=== PATIENT | female | born 1985 | race African-American/Black ===

== ENCOUNTER 2016-08-02 16:37 | Inpatient (IN) | payer OTHER ==
[~2016-08-02] VITALS: Ht 165.1 cm; Wt 89.4 kg
[~2016-08-02 16:37] MED LIST: PREDNISONE 20MG20 MG PO; VISTARIL25 MG PO
[2016-08-02 18:20] LABS: ABSOLUTE BASOPHIL COUNT 0.1 /CUMM (0.0-0.2); ABSOLUTE EOSINOPHIL COUNT 0.2 /CUMM (0.0-0.7); ABSOLUTE GRANULOCYTE CT 6.8 /CUMM (1.4-6.5); ABSOLUTE LYMPH COUNT 1.3 /CUMM (1.2-3.4); ABSOLUTE MONOCYTE COUNT 0.5 /CUMM (0.10-0.60); BASOPHIL % 0.6 % (0.0-2.0); EOSINOPHIL % 1.8 % (0-5); GRANULOCYTE % 77.3 % (42.2-75.2); HEMATOCRIT 38.8 % (37-47); MEAN CORPUSCULAR HGB 27.9 PG (27.0-31.0); MEAN CORPUSCULAR VOLUME 84.5 FL (81.0-99.0); MEAN PLATELET VOLUME 9.3 FL (7.4-10.4); PLATELET COUNT 248 /CUMM (130-400); RBC DISTRIBUTION WIDTH 13.9 % (11.5-14.5); RED BLOOD CELL CT 4.59 /CUMM (4.20-5.40); WHITE BLOOD CELL COUNT 8.8 /CUMM (4.8-10.8)
--- NOTE | 2016-08-02 20:34 | History & Physical ---
General Information and HPI MD Statement: I have seen and personally examined MARCELL LAZCANO and documented this H&P. The patient is a 31 year old female at [38] weeks and [3] days gestation who presented with a chief complaint of [LOF]. Source of Information: patient Exam Limitations: no limitations History of Present Illness: 31yo, 38 3/7wks, c/o LOF since 4:30PM today. denies any ctxs, no vaginal bleeding, reports GFM.Amnisure positive. care started at 8 wks 2 days, 22 wks anatomy scan seen echogenic cardiac focus , MaterniT 21 normal, pt declined amniocentesis. GBS positive. 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 Past Pregnancies Past Pregnancies: Date of Delivery: 08/16/2009 Gestational Age: 38wks Length of Labor: 12hours Weight: 6lb1oz Type of Delivery: vaginal Anesthesia: epidural Medical History Blood Transfusion Hx: No Neurological: NONE EENT: NONE Cardiovascular: NONE Respiratory: NONE Gastrointestinal: NONE Hepatic: NONE Renal: NONE Musculoskeletal: NONE Psychiatric: NONE Endocrine: NONE Blood Disorders: NONE Cancer(s): NONE 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 Home Who Do You Live With? spouse, child Primary Language: Zambian Smoking Status: Never Smoked ETOH Use: denies use Illicit Drug Use: denies illicit drug use Review of Systems Review of Systems Constitutional: Reports: no symptoms. EENTM: Reports: no symptoms. Cardiovascular: Reports: no symptoms. Respiratory: Reports: no symptoms. GI: Reports: no symptoms. Genitourinary: Reports: see HPI. Musculoskeletal: Reports: no symptoms. Skin: Reports: no symptoms. Neurological/Psychological: Reports: no symptoms. Hematologic/Endocrine: Reports: no symptoms. Immunologic/Allergic: Reports: no symptoms. All Other Systems: Reviewed and Negative Date of LMP: 11/07/15 Post Menopausal: No Exam & Diagnostic Data Obstetric Exam Wgt Gained During : 26lbs Pelvimetry: adequate Dilation (cm): 2 Effacement (%): 50 Station: -3 Membranes: SROM Fluid: clear Fundal Height (cm): 38 Multiple Gestation? No Contractions: irregular #1 - FHR Baseline: 130 Category: 1 Estimated Weight: 3000g Presentation: vertex Patient for Induction? No Physical Exam: VSS general: NAD Abdomen: gravid, soft, nontender Ext: DCT (-) Labs Blood Type & Rh: O positive Antibody Screen: negative Hct/Hgb & Platelets #1: 12.3/39.5%, [id number] Hct/Hgb & Platelets #2: 11.7/36.5%,PLT [id number] Rubella: immune VDRL #1: negative VDRL #2: negative HbsAg: negative HIV #1: negative HIV #2 negative 1 Hr P Group B Strep: positive Initial Ultrasound: IUP at 8wks 2 days Anatomy Ultrasound: normal, echogenic cardiac focus seen Genetic Testing: normal Last 24 Hrs of Labs/Andi: Laboratory Tests 08/02/16 1810: Urine Color YEL, Urine Clarity CLEAR, Urine pH 7.0, Ur Specific [place] 1.010, Urine Protein NEG, Urine Ketones NEG, Urine Nitrite NEG, Urine Bilirubin NEG, Urine Urobilinogen 0.2, Ur Leukocyte Esterase SMALL H, Ur Microscopic SEDIMENT EXAMINED, Urine RBC RARE, Urine WBC 1-3 H, Ur Epithelial Cells FEW, Urine Mucus RARE, Urine Hemoglobin TRACE-INTACT, Urine Glucose NEG 08/02/16 1705: CBC w Diff NO MAN DIFF REQ, RBC 4.59, MCV 84.5, MCH 27.9, RDW 13.9, MPV 9.3, Gran % 77.3 H, Lymphocytes % 15.0 L, Monocytes % 5.3, Eosinophils % 1.8, Basophils % 0.6, Absolute Granulocytes 6.8 H, Absolute Lymphocytes 1.3, Absolute Monocytes 0.5, Absolute Eosinophils 0.2, Absolute Basophils 0.1, PUBS MCHC 33.0 Assessment/Plan Assessment/Plan: 31yo, 38 3/7wks, SROM 1. admit pt, admission labs 2. antibiotics for GBS prophylaxis 3. pain management as needed 4. monitor closely As Ranked By This Provider Problem List: 1. Core Measures/Miscellaneous Venous Thromboembolism VTE Risk Factors: / VTE Contraindications: No Contraindications VTE Prophylaxis Ordered Inpt: Early Ambulation VTE Diagnosis: No Beta Oanh Is Beta Oanh a Home Med? No Antibiotics Is Patient on Antibiotics? No Attending MD Review Statement Attending Statement Attending MD Statement: examined this patient, discussed with family, discussed w/nursing
[2016-08-02] MEDS ORDERED: PRENATABS RX T1 EACH PO (21:41)
[2016-08-03 00:26] VITALS: BP 113/58
--- NOTE | 2016-08-03 10:04 | PN- OBGYN ---
Surgical Brief Attending Note Brief Attending Note: pt had satdolo last night for ctxs pain, and rested overnight, this morning, she had irregular ctxs, FHT baseline 120s, moderate variability, + acels, occasional variable decles, cervix 2cm/50%/-3, will start pitocin augmentation. will monitor closely
--- NOTE | 2016-08-03 11:10 | PN- OBGYN ---
Surgical Brief Attending Note Brief Attending Note: pt has no complaints. pitocin started at 2 mU/min on TOCO: ctxs q5-6 min, FHR baseline 120s, variable decels to 80s with each ctxs , with 1 late decels, cervix 2 cm/50%/-3. d/w pt about intolerance of labor, AGENT SPA DESK positive, d/w pt, she understand and agreed. R/B of d/w pt, including but not limit to infection, bleeding, damage to other organs, wound infection , secondary healing of wound, she understand and agreed to proceed .
--- NOTE | 2016-08-03 12:58 | Operative Report ---
Operative/Inv Procedure Report Surgery Date: 08/03/16 Name of Procedure: Primary low transverse section via Pfannenstiel Pre-Operative Diagnosis: 38 4/7wks, spontaneous rupture of membrane, intolerance of labor Post-Operative Diagnosis: Same Estimated Blood Loss: 600 mL Surgeon/Harness Tier: MATTEO HARMAN,PEDRO Fletcher MD Anesthesia: spinal IV Fluids: 1800 mL lactated Ringer's Urine Output: 500 mL clear urine at the end of procedure Specimens: Placenta Complications: None Condition: Stable Operative Indication: 31-year-old G2 para 1001 at 38 weeks 4 days intrauterine , spontaneous rupture of membrane around 5:30 PM 08/02/2016, she received antibiotics for GBS positive prophylaxis, she was started Pitocin for augmentation of labor 2016, contraction stress test positive, intolerance of labor, cervix was 2 cm dilated , remote from delivery. Operative/Procedure Note Note: The patient was taken to the operating room where spinal anesthesia was found to be adequate. She was then prepared and draped in the normal sterile fashion in the dorsosupine position with a leftward tilt. A Pfannenstiel skin incision was then made with the scalpel and carried through to the underlying layer of the fascia . The fascia was incised in the midline and the incision extended laterally. The rectus muscle was in the midline, and the peritoneum identified and entered bluntly. The peritoneal incision was then extended superiorly and inferiorly with good visualization of the bladder. The bladder blade was then inserted and the vesicouterine peritoneum identified, grasp with pickups and entered sharply with the Metzenbaum scissors. The incision was then extended laterally and bladder flap created digitally. The bladder blade was then reinserted and the lower uterine segment incised in a transverse fashion with the scalpel. The uterine incision was then extended laterally and the bladder blade was removed and infant head delivered atraumatically. The nose and mouth was suctioned with the suction bulb, and the cord clamped and cut. The was handed off to the waiting pediatricians. Cord blood was sent. The placenta was then removed manually. The uterus exteriorized, and cleared with all clots of debris. The uterine incision was then repaired with 0 Vicryl in a running locked fashion. A second layer of the same suture was used to obtain hemostasis. On the right corner of the uterine incision there is a small amount bleeding observed, 0 Vicryl suture was used to suture ligate the bleeding excellent hemostasis assured. The uterus returned to the abdomen, the gutters were cleared of all clots, and the peritoneum closed with 2-0 Vicryl. The fascia was reapproximated with 0 Vicryl in a running fashion. The subcutaneous adipose tissue was reapproximated with 3O plain suture. The skin was closed with 4-0 Vicryl subcuticularly. The patient tolerated the procedure well, sponge, lap and needle counts were correct 2. Patient was transferred to the recovery room in stable condition. Findings: Female as cephalic presentation, LOT position, 8/9. 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
[2016-08-04 08:46] LABS: ABSOLUTE EOSINOPHIL COUNT 0.1 /CUMM (0.0-0.7); ABSOLUTE MONOCYTE COUNT 0.6 /CUMM (0.10-0.60); RBC DISTRIBUTION WIDTH 13.8 % (11.5-14.5)
[2016-08-04 08:57] LABS: ABSOLUTE BASOPHIL COUNT 0.3 /CUMM (0.0-0.2); ABSOLUTE LYMPH COUNT 1.4 /CUMM (1.2-3.4); BASOPHIL % 3.3 % (0.0-2.0); EOSINOPHIL % 1.2 % (0-5); MEAN CORPUSCULAR HGB 28.2 PG (27.0-31.0); MEAN CORPUSCULAR HGB CONC 33.1 G/DL (33.0-37.0); MEAN CORPUSCULAR VOLUME 85.1 FL (81.0-99.0); MEAN PLATELET VOLUME 9.1 FL (7.4-10.4); PLATELET COUNT 218 /CUMM (130-400); RED BLOOD CELL CT 3.94 /CUMM (4.20-5.40); WHITE BLOOD CELL COUNT 9.4 /CUMM (4.8-10.8)
[2016-08-04 09:08] LABS: HEMATOCRIT 33.5 % (37-47)
[2016-08-04 09:27] LABS: GRANULOCYTE % 74.6 % (42.2-75.2)
--- NOTE | 2016-08-04 09:41 | PN- Post Delivery/GYN ---
Subjective Subjective: feeling well Review of Systems Constitutional: Reports: no symptoms. Denies: chills, fever. EENTM: Denies: blurred vision, double vision, visual changes. Cardiovascular: Denies: chest pain. Respiratory: Denies: cough, short of breath. Gastrointestinal: Denies: nausea, vomiting. Neurological/Psychological: Denies: anxiety, depressed. Objective Last 24 Hrs of Vital Signs/I&O vss Physical Exam General Appearance Alert, Oriented X3, Cooperative, No Acute Distress Cardiovascular Regular Rate Lungs Clear to Auscultation Abdomen Soft, incision clean and dry Current Medications: Current Medications Sig/Venancio Start time Last Medication Dose Route Stop Time Status Admin Acetaminophen 1,000 MG Q6P PRN 08/03 1600 AC 08/03 N/A 1 UNIT IV 2145 Acetaminophen 650 MG Q4P PRN 08/03 1245 AC PO Bisacodyl 10 MG DAILY NEEDED PRN 08/03 1245 AC MO Butorphanol Tartrate 1 MG Q4P PRN 08/03 0130 DC 08/03 IV 0133 Butorphanol Tartrate 1 MG Q4P PRN 08/03 0130 DC 08/03 IM 0134 Citric Acid/Sodium 30 ML ONCE ONE 08/03 1300 DC 08/03 Citrate PO 08/03 1301 1247 Clindamycin 900 MG ONCE ONE 08/03 1115 DC 08/03 IV 08/03 1116 1245 Diphenhydramine HCl 25 MG Q6P PRN 08/03 1415 AC IV Docusate Sodium 100 MG AT BEDTIME PRN 08/03 1245 AC PO Fentanyl Citrate 100 MCG .STK-MED ONE 08/03 1101 DC IM 08/03 1102 Gentamicin Sulfate 80 MG ONE ONE 08/03 1115 DC 08/03 Dextrose/Water 100 ML IV 08/03 1144 1116 Hydroxyzine HCl 100 MG ONCE PRN 08/02 2345 DC 08/02 PO 2354 Ibuprofen 800 MG Q6P PRN 08/03 1245 AC 08/04 PO 0548 Ketorolac 30 MG Q6H PRN 08/03 2014 DC Tromethamine IV 08/04 2014 Ketorolac 30 MG Q6 08/03 1800 CAN Tromethamine IV 08/04 1759 Ketorolac 30 MG Q6P PRN 08/03 1800 AC 08/04 Tromethamine IV 08/04 1759 0009 Ketorolac 30 MG ONE ONE 08/03 1415 CAN Tromethamine IV 08/03 1900 Ketorolac 30 MG ONE ONE 08/03 1200 DC Tromethamine IV 08/03 1201 Lactated Ringer's 1,000 ML Q8H 08/03 1245 AC IV Lactated Ringer's 1,000 ML Q8H 08/02 1745 DC 08/03 IV 0943 Metoclopramide HCl 10 MG Q6P PRN 08/03 1415 AC IV Midazolam HCl 5 MG .STK-MED ONE 08/03 1101 DC IM 08/03 1102 Morphine Sulfate 10 MG .STK-MED ONE 08/03 1101 DC IV 08/03 1102 Naloxone HCl 0.2 MG .Q5MIN PRN 08/03 1415 AC IV Oxycodone/ 1 TAB Q4P PRN 08/03 1245 AC Acetaminophen PO Oxycodone/ 2 TAB Q4P PRN 08/03 1245 AC Acetaminophen PO Oxytocin 20 UNITS ONCE ONE 08/03 1345 DC 08/03 Lactated Ringer's 1,000 ML IV 08/03 2144 1550 Oxytocin 20 UNITS Q8H 08/03 1245 DC 08/03 Lactated Ringer's 1,000 ML IV 08/03 2044 1246 Oxytocin 10 UNITS ONCE ONE 08/03 1245 DC 08/03 IM 08/03 1246 1245 Oxytocin 30 UNITS PER PROTOCL 08/03 1015 DC Lactated Ringer's 500 ML IV Vancomycin HCl 1,000 MG Q12H 08/02 1815 DC 08/03 Dextrose/Water 250 ML IV 0630 Last 24 Hrs of Labs/Andi: Laboratory Tests 08/04/16 0645: CBC w Diff NO MAN DIFF REQ, RBC 3.94 L, MCV 85.1, MCH 28.2, RDW 13.8, MPV 9.1, Gran % 74.6, Lymphocytes % 14.6 L, Monocytes % 6.3, Eosinophils % 1.2, Basophils % 3.3 H, Absolute Granulocytes 7.0 H, Absolute Lymphocytes 1.4, Absolute Monocytes 0.6, Absolute Eosinophils 0.1, Absolute Basophils 0.3, PUBS MCHC 33.1 Microbiology 08/03 1135 URINE ROUT: Urine Culture - RES Assessment/Plan Assessment/Plan pod #1 vss afebrile Problem List: 1. 2. SROM (spontaneous rupture of membranes) Attending MD Review Statement Attending Statement Attending MD Statement: examined this patient, discussed with family, discussed with nursing
--- NOTE | 2016-08-05 11:01 | PN- OBGYN ---
Surgical Brief Attending Note Brief Attending Note: POD#2 pt is resting in bed, feeling well, no complaints,tolerate diet, void without difficulties, flatus (+). PE: VSS CV RRR lungs CTA B/L Abdomen: soft, nontender, uetrus firm, fundus below umbilicus,incision D/C/I, lochia mild Ext: DCT (-) A/P: 31 yo, s/p PLTCS, PPD #2 1. encourage ambulation, encourage 2.RT PP care 3. pain management as needed
[2016-08-06] MEDS ORDERED: PERCOCET 5-3251 EACH PO (09:47)
[2016-08-06] MEDS ORDERED: IBUPROFEN800 M1 PO (09:47)
--- NOTE | 2016-08-06 11:21 | PN- OBGYN ---
Surgical Brief Attending Note Brief Attending Note: The patient is doing well and is without complaints. She is an bleeding, voiding, tolerating pain and by mouth, bottle feeding, small to moderate lochia. Vital Signs are stable Abdomen is soft, appropriate tender, incision is clean dry and intact. Steri- Strip's are in place. Extremities are without calf tenderness and our trace pedal edema bilaterally Laboratory Tests 08/04/16 0645: CBC w Diff NO MAN DIFF REQ, RBC 3.94 L, MCV 85.1, MCH 28.2, RDW 13.8, MPV 9.1, Gran % 74.6, Lymphocytes % 14.6 L, Monocytes % 6.3, Eosinophils % 1.2, Basophils % 3.3 H, Absolute Granulocytes 7.0 H, Absolute Lymphocytes 1.4, Absolute Monocytes 0.6, Absolute Eosinophils 0.1, Absolute Basophils 0.3, PUBS MCHC 33.1 Microbiology 08/03 1135 URINE ROUT: Urine Culture - COMP Impression and plan: Postop day 3. Status post primary low transverse section for nonreassuring heart tones. Plan discharge to home today. Discharge precautions advised. Return to office in 2 and 6 weeks .
--- NOTE | 2016-08-08 12:42 | Discharge Summary ---
Visit Information Visit Dates Admission Date: 08/02/16 Discharge Date: 08/06/16 Hospital Course Course Attending Physician: PEDRO FELIPE MD Primary Care Physician: ANGELICA LYNCH MD Hospital Course: 31 yo, she was admitted for SROMon 08/02/2016. she received antibiotics for GBS prophylaxis.Pitocin was used for IOL, intolerance roderick was encountered, pt underwent PLTCS on 08/03/2016. pt tolerate procedure well, she delivered a live female without complications. During the hospital stay, she remained in stable condition, afebrile, VSS, uterus firm, fundus below umbilicus, incision D/C/I, lochia mild. she was discharged on postoperative day 3. Complications: none Allergies: Coded Allergies: Penicillins (Mild, RASH 08/03/16) Significant Procedures: PLTCS Disposition Summary Disposition Principal Diagnosis: term , SROM, intolerance of labor Additional Diagnosis: NONE Discharge Disposition: home or self care Discharge Instructions General Discharge Information Code Status: Full Code Patient's Diet: regular Patient's Activity: as tolerated Follow-Up Instructions/Appts: 2wks and 6 wks in office Medications at Discharge Discharge Medications: Continue taking these medications: Vit #76/Iron,Carb/FA (Prenatabs Rx Tablet) 29 MG IRON-1 MG TABLET 1 Tablet ORAL DAILY Start taking the following new medications: Ibuprofen (Ibuprofen) 800 MG TABLET 800 Milligram ORAL EVERY SIX HOURS NEEDED as needed for UTERINE CRAMPING Qty = 30 No Refills Comments: Last Taken:08/06/16 Time:09 Oxycodone HCl/Acetaminophen (Percocet 5-325 MG Tablet) 5 MG-325 MG TABLET 1 Tablet ORAL EVERY 4 HOURS NEEDED as needed for PAIN SCALE 4-6 (MODERATE ) Qty = 30 No Refills Comments: Last Taken:08/06/16 Time:0930 Copies To: PEDRO FELIPE MD, MD Review Statement Documenting Attending: PEDRO FELIPE MD
== END 2016-08-06 11:50 | DRG 540 ==
LOC: CBCO 16:37 → GNO 17:11
PROVIDERS: ADMIT Obstetrics & Gynecology
PROC: 10D00Z1 Extraction of Products of Conception, Low, Open Approach (ICD-10-PCS; principal; 2016-08-02)
DX: O76 Abnormality in fetal heart rate and rhythm complicating labor and delivery (principal); Z3A.38 38 weeks gestation of pregnancy; Z37.0 Single live birth; O99.824 Streptococcus B carrier state complicating childbirth
CPT/HCPCS: GNOP; GNOS; 81001; 84112; 87086; 88307; J0131; J0595; J1580; J1885; J2765; J3370; J7060; J7120

== ENCOUNTER 2016-11-13 17:10 | Emergency (ER) | payer OTHER ==
[~2016-11-13 17:10] MED LIST changes: +IBUPROFEN800 M1 PO; +PERCOCET 5-3251 EACH PO; +PRENATABS RX T1 EACH PO
--- NOTE | 2016-11-13 17:53 | ED GENERAL ADULT ---
History of Present Illness General Chief Complaint: General Adult Stated Complaint: PT IS HAVING A PROBLEM WITH HER BLOOD PRESSURE Source: patient Exam Limitations: no limitations Vital Signs & Intake/Output Vital Signs & Intake/Output Vital Signs Date Time Temp Pulse Resp B/P B/P Pulse O2 O2 Flow FiO2 Mean Ox Delivery Rate 11/13 1832 132/88 11/13 1811 98.5 69 20 144/100 11/13 1752 Room Air 11/13 1743 144/100 11/13 1728 98.5 69 20 149/104 97 Allergies Coded Allergies: Penicillins (Mild, RASH 08/03/16) Reconcile Medications Amlodipine (Norvasc) 2.5 MG TABLET 1 TAB PO DAILY htn Etonogestrel (Nexplanon) 68 MG IMPLANT CONTROL (Reported) Sulfamethoxazole/Trimethoprim (Bactrim Ds Tablet) 800 MG-160 MG TABLET 1 TAB PO BID uti Triage Note: PER PT BP FLUCUATES NEVER FORMALLY DX WITH HTN BUT THIS AM HAD A BCUKNER TOOK BP AND IT WAS HIGH, CURRENTLY CONT WITH BUCKNER BP 149/104 IMPLANTED BCP. Triage Nurses Notes Reviewed? yes Onset: Abrupt Duration: hour(s):, constant, continues in ED Timing: recent history Injury Environment: home Severity: moderate, severe No Modifying Factors: none : No Patient currently breastfeeds: No HPI: 31-year-old female comes into the emergency room for further evaluation of her blood pressure being high. Patient reports she's been told she has had hypertension in the past. He has not been treated with any medication. She reports that she was feeling lightheaded with a headache earlier today and thought this was an indication her blood pressure was high so she took it at home and it was high. She denies any chest pain or shortness of breath. Denies any vomiting. Currently taking no medications for blood pressure. Denies any other past medical history or any other associated symptoms. Past History Travel History Traveled to [place] past 21 day No Medical History Any Pertinent Medical History? 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 No Review of Systems Review of Systems Constitutional: Reports: no symptoms. EENTM: Reports: no symptoms. Respiratory: Reports: no symptoms. Cardiovascular: Reports: no symptoms. GI: Reports: no symptoms. Genitourinary: Reports: no symptoms. Musculoskeletal: Reports: no symptoms. Skin: Reports: no symptoms. Neurological/Psychological: Reports: no symptoms. Hematologic/Endocrine: Reports: no symptoms. Immunologic/Allergic: Reports: no symptoms. All Other Systems: Reviewed and Negative Physical Exam Physical Exam General Appearance: well developed/nourished, alert, awake Head: atraumatic, normal appearance Eyes: Bilateral: normal appearance, PERRL, EOMI. Ears, Nose, Throat: normal pharynx, normal ENT inspection, hearing grossly normal Neck: normal inspection, full range of motion Respiratory: normal breath sounds, no respiratory distress Cardiovascular: regular rate/rhythm Back: normal inspection Extremities: normal inspection, no edema Neurologic/Psych: awake, alert, oriented x 3, normal gait, normal mood/affect Skin: intact, normal color Core Measures ACS in differential dx? No CVA/TIA Diagnosis: No Severe Sepsis Present: No Septic Shock Present: No Progress Differential Diagnoses I considered the following diagnoses in my evaluation of the patient: Hypertensive urgency, essential hypertension, CVA, end organ damage, proteinuria , Plan of Care: Orders Procedure Date/time Status Add-on Test (ER Only) 11/13 1842 Active CULTURE,URINE 11/13 1753 Active URINE 11/13 1746 Complete URINALYSIS 11/13 1746 Complete TROPONIN LEVEL 11/13 1746 Complete COMPREHENSIVE METABOLIC PANEL 11/13 1746 Complete CBC WITHOUT DIFFERENTIAL 11/13 1746 Complete EKG 11/13 1746 Active Laboratory Tests 11/13/16 175: Urinalysis LIGHT H, Urine Color YEL, Urine Clarity CLEAR, Urine pH 7.5, Ur Specific [place] 1.020, Urine Protein NEG, Urine Ketones NEG, Urine Nitrite NEG, Urine Bilirubin NEG, Urine Urobilinogen 2.0 H, Ur Leukocyte Esterase MOD H, Ur Microscopic SEDIMENT EXAMINED, Urine RBC RARE, Urine WBC 10-15 H, Ur Epithelial Cells FEW, Urine Bacteria MOD H, Urine Mucus MOD H, Urine Hemoglobin NEG, Urine Glucose NEG, Urine Test NEGATIVE 11/13/161748: Anion Gap 11, Estimated GFR > 60, BUN/Creatinine Ratio 11.3, Glucose 86, Calcium 9.2, Total Bilirubin 0.3, AST 17, ALT 28, Alkaline Phosphatase 70, Troponin I < 0.01, Total Protein 6.7, Albumin 3.8, Globulin 2.9, Albumin/Globulin Ratio 1.3, CBC w Diff NO MAN DIFF REQ, RBC 4.69, MCV 79.4 L, MCH 25.3 L, RDW 14.8 H, MPV 8.1, Gran % 58.8, Lymphocytes % 30.3, Monocytes % 6.8, Eosinophils % 3.3, Basophils % 0.8, Absolute Granulocytes 4.1, Absolute Lymphocytes 2.1, Absolute Monocytes 0.5, Absolute Eosinophils 0.2, Absolute Basophils 0.1, PUBS MCHC 31.8 L Microbiology 11/13 1754 URINE ROUT: Urine Culture - RECD Initial ED EKG: normal intervals, normal p-waves, normal QRS complex, normal sinus rhythm, rate (76), nonspecific ST T wave chg Departure Departure Disposition: HOME OR SELF CARE Condition: Stable Clinical Impression Primary Impression: Hypertension Referrals: ANGELICA LYNCH MD (PCP/Family) Additional Instructions: Take amlodipine as prescribed. If urine culture comes back positive filled prescription for oral antibiotic. Call the ER if he has not heard any results within 3 days. Number is [phone]. Follow-up with your primary care doctor. Please go over all results of today's visit with your primary care doctor. Contact your primary care doctor to let them know you were here in the emergency room. There may be nonspecific findings which may not be related to your visit today here in the emergency room but may require further evaluation and chronic monitoring by your primary care doctor. If you had a laceration today the chance of foreign body always remains. You should follow-up with your primary care doctor for recheck in 3-5 days for a wound check. If you had an x-ray done there is a chance that a fracture could have been missed on initial read and you should follow-up with your primary care doctor for repeat x-rays if symptoms persist. If your blood pressure was elevated here in the emergency room please have rechecked by her primary care doctor within the next 48 hours by your primary care doctor. If you were prescribed a narcotic here in the emergency room or any type of controlled substances you're not allowed to drive while taking this medication or operate any type of heavy machinery. Narcotics can make you feel lightheaded dizziness nausea and can cause constipation. You may need to fruit or nut picker a stool softener. Thank you for choosing [facility] emergency room. Please return to the emergency room immediately if you have any other concerns worsening of symptoms. Departure Forms: Customer Survey General Discharge Information Prescriptions: Current Visit Scripts Amlodipine (Norvasc) 1 TAB PO DAILY #30 TAB Sulfamethoxazole/Trimethoprim (Bactrim Ds Tablet) 1 TAB PO BID #14 TAB Comments 11/13/2016 9:07:01 PM Patient clinically looks well. Nontoxic-appearing. In no apparent distress. No neurological deficits. Patient given a small dose of amlodipine. Patient started on small dose of amlodipine. Patient referred back to her primary care. Patient has no symptoms of urinary tract infection. Urine culture sent. Patient told to hold off on filling prescription at this time due to the fact that she is asymptomatic and there was some contamination with the urine. At this time we will wait on urine culture. Patient was instructed to call back if she did not hear results within 3 days. Critical Care Note Critical Care Note Critical Care Time: non-applicable
[2016-11-13] MEDS ORDERED: NEXPLANON68 M1 (18:06)
[2016-11-13 18:08] LABS: ABSOLUTE BASOPHIL COUNT 0.1 /CUMM (0.0-0.2); ABSOLUTE EOSINOPHIL COUNT 0.2 /CUMM (0.0-0.7); ABSOLUTE GRANULOCYTE CT 4.1 /CUMM (1.4-6.5); ABSOLUTE LYMPH COUNT 2.1 /CUMM (1.2-3.4); ABSOLUTE MONOCYTE COUNT 0.5 /CUMM (0.10-0.60); BASOPHIL % 0.8 % (0.0-2.0); EOSINOPHIL % 3.3 % (0-5); GRANULOCYTE % 58.8 % (42.2-75.2); HEMATOCRIT 37.2 % (37-47); MEAN CORPUSCULAR HGB 25.3 PG (27.0-31.0); MEAN CORPUSCULAR HGB CONC 31.8 G/DL (33.0-37.0); MEAN CORPUSCULAR VOLUME 79.4 FL (81.0-99.0); MEAN PLATELET VOLUME 8.1 FL (7.4-10.4); PLATELET COUNT 319 /CUMM (130-400); RBC DISTRIBUTION WIDTH 14.8 % (11.5-14.5); RED BLOOD CELL CT 4.69 /CUMM (4.20-5.40)
[2016-11-13 18:32] VITALS: BP 132/88
[2016-11-13] MEDS ORDERED: NORVASC2.5 M1 PO (19:05)
[2016-11-13] MEDS ORDERED: BACTRIM DS TAB1 EACH PO (19:05)
== END 2016-11-13 19:10 ==
LOC: ERH 17:10
PROVIDERS: Physician Assistant Medical
DX: I10 Essential (primary) hypertension (principal)
CPT/HCPCS: 81001; 81025; 87086; 93005; 93010

== ENCOUNTER 2017-10-23 16:58 | Emergency (ER) | payer OTHER ==
[~2017-10-23] VITALS: Ht 165.1 cm; Wt 85.7 kg
[~2017-10-23 16:58] MED LIST changes: +BACTRIM DS TAB1 EACH PO; +NEXPLANON68 M1; +NORVASC2.5 M1 PO
[2017-10-23 17:53] VITALS: BP 128/88
[2017-10-23] MEDS ORDERED: ROBAXIN-750750 M1 PO (18:19)
[2017-10-23] MEDS ORDERED: IBUPROFEN800 M1 PO (18:19)
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
== END 2017-10-23 18:23 ==
LOC: ERH 16:58
DX: Z04.1 Encounter for examination and observation following transport accident (principal); M54.5 Low back pain; I10 Essential (primary) hypertension